=== PATIENT | male | born 1950 | race Caucasian/White ===

== ENCOUNTER 2017-05-11 12:31 | Day surgery (SDC) | payer MEDICARE, OTHER ==
[~2017-05-11 12:31] MED LIST: ACETAMIN-HYDROcod 325-5 MG PO; SULF-154 PO
[2017-05-11 12:58] VITALS: BP 131/83; PULSE 71; RESP 14; TEMP 98.4; O2SAT 100
[2017-05-11 13:55] VITALS: BP 138/100; PULSE 62; RESP 20; TEMP 97.5; O2SAT 99
[2017-05-11] MEDS ORDERED: LIDOCAINE HCL 1% 20 ML VIAL ONE (14:03)
[2017-05-11 14:30] VITALS: BP 127/85; PULSE 80; RESP 18; O2SAT 98
--- NOTE | 2017-05-11 14:38 | RADRPT ---
EXAM DATE/TIME: 05/11/2017 12:55 [place] COMPARISON: No previous studies available for comparison. INDICATIONS : Enlarged lymph node. This patient had a left groin lymph node excised and previous report this was a nondiagnostic sampling. Left groin lymph node biopsy is requested. MEDICAL HISTORY : Arthritis. Enlarged lymph nodes left groin. SURGICAL HISTORY : Splenectomy. Left knee surgery. Right wrist repair. Left groin lymph node removal. ENCOUNTER: Initial ACUITY: 1 month PAIN SCORE: 1/10 LOCATION: Left groin. ORGAN: Left lymph node SPECIMENS: Three core specimen(s) submitted for pathologic evaluation. DEVICE: 18 gauge Temno needle Post procedure scanning reveals no hematoma or other complication. The possibility does exist that the tissue obtained will be non-diagnostic. If the sample is non-brandi gnostic a repeat biopsy or surgical biopsy may need to be performed. TECHNIQUE: 1. Ultrasound guidance for needle biopsy. 2. Needle biopsy. I explained to the patient the possibility of a nondiagnostic sampling. Particularly in the setting o f a previously excised lymph node being nondiagnostic. The risks, benefits and alternatives to the pr ocedure were explained and verbal and written consent was obtained. The site was prepped in sterile fashion. Full sterile technique was used, including cap, mask, sterile gloves and gown and a large s terile sheet. Hand hygiene and 2% chlorhexidine and/or betadine/alcohol prep was utilized per protoc ol for cutaneous antisepsis. The skin and subcutaneous tissues were infiltrated with local anestheti c solution. Sterile gel and sterile probe cover were utilized for ultrasound guidance. With the patient on the ultrasound table, images were obtained. These images reveal a solitary enlarg ed lymph node within the left groin measuring 3.5 x 2.2 x 0.8 cm. It has a normal fatty hilar structu re. A couple of tiny lymph nodes are seen more cephalad within the left groin. These are not enlarged . No dominant lymph node was targeted during the biopsy. A needle was advanced into the identified target and the number of specimens as above obtained and graham bmitted for pathologic evaluation. Samples were placed in formalin as well as RPMI fluid. The patient tolerated the procedure well and left the ultrasound suite in stable condition. CONCLUSION: Uncomplicated ultrasound guided core biopsy of an enlarged left groin lymph node. Dre Jimenez Jr., MD on May 11, 2017 at 14:34 Board Certified Radiologist. This report was verified electronically.
== END 2017-05-11 14:30 | disposition home or self-care (01) ==
LOC: HRAD 12:31 → HRIP 12:33 → HRAD 14:30
PROVIDERS: ATTEND Surgery
DX: R59.0 Localized enlarged lymph nodes (principal)
CPT/HCPCS: 38505; 76942; 88305